=== PATIENT | male | born 1945 | race African-American/Black ===

== ENCOUNTER 2020-01-10 10:17 | Inpatient (IN) ==
[2020-01-10] MEDS ORDERED: SODIUM CHLORIDE 0.9% 500 ML IV STA (10:47)
[2020-01-10] MEDS ORDERED: SODIUM CHLORIDE 0.9% 1,000 ML IV PRN ×2 (10:48→14:51)
[2020-01-10 11:41] LABS: Eosinophils % 0.3 % (0.00-10.9); Immature Granulocytes % 1.4 %; Immature Granulocytes Absolute 0.08 #; Lymphocytes # 0.7 10*3/uL (1.4-4.0); Mean Corpuscular HGB Conc 28.8 GM/DL (32-36); Mean Corpuscular Volume 106.1 FL (87-102); Monocytes % 10.8 % (1.7-12.7); NRBC # 0.02 10*3/uL; Neutrophils % 75.5 % (38.7-73.9); Red Blood Count 0.98 MC/CUMM (3.8-5.5); Red Cell Distribution Width 18.4 % (9.3-17.3); White Blood Count 5.9 T/CUMM (4-12)
[2020-01-10 11:43] LABS: PT Patient Result 10.3 SECS (9.8-11.9)
[2020-01-10 11:45] LABS: Hematocrit 10.4 VOL% (42.0-52.0)
[2020-01-10 11:46] LABS: Platelet Count 7 T/CUMM (130-400)
[2020-01-10 11:59] LABS: Alanine Aminotransferase 14 U/L (16-61); Albumin 1.9 G/DL (3.4-5.0); Alkaline Phosphatase 66 U/L (45-117); Aspartate Amino Transferase 18 U/L (0-37); Bilirubin,Total < 0.39 MG/DL (0.2-1.0); Blood Urea Nitrogen 85 MG/DL (7-18); Calcium 7.1 MG/DL (8.5-10.1); Estimated Glom Filtration Rate 8 ML/MIN; Glucose 128 MG/DL (74-106); Osmolality,Calculated 302.7 MOS/KG (273-304); Total Protein 5.5 G/DL (6.4-8.3)
[2020-01-10 12:21] LABS: Band Neutrophils 6 % (0-10); Eosinophils 1 % (0-10); Lymphocytes 16 % (20-55); Myelocytes 1 %; Segmented Neutrophils 71 % (50-85); Total Cells Counted 100
[2020-01-10 12:22] LABS: Anisocytosis 1+; Hypochromasia Slight; Macrocytosis 1+; Platelet Estimate Decreased
[2020-01-10 13:05] LABS: Folate 8.2 NG/ML (5.4-24.0)
[2020-01-10] MEDS ORDERED: ONDANSETRON 4 MG/2 ML VIAL IV PRN (14:38)
[2020-01-10] MEDS ORDERED: DEXTROSE 10% 250 ML BAG IV PRN (14:38)
[2020-01-10] MEDS ORDERED: GLUCAGON 1 MG VIAL IM PRN (14:38)
[2020-01-10] MEDS ORDERED: PNEUMOCOCCAL VACCINE (13 VALENT) 0.5 ML SYRINGE IM ONE (17:27)
[2020-01-10] MEDS: SODIUM CHLORIDE 0.9% 1,000 ML IV SCH (17:41)
[2020-01-11 05:59] LABS: Basophils % 0.2 % (0.0-0.8); Eosinophils # 0.1 10*3/uL (0.0-0.87); Eosinophils % 1.2 % (0.00-10.9); Immature Granulocytes Absolute 0.05 #; Lymphocytes # 0.6 10*3/uL (1.4-4.0); Lymphocytes % 12.8 % (21.2-54.2); Mean Corpuscular HGB Conc 30.7 GM/DL (32-36); Monocytes % 11.2 % (1.7-12.7); Neutrophils % 73.6 % (38.7-73.9); Red Blood Count 1.47 MC/CUMM (3.8-5.5); Red Cell Distribution Width 16.8 % (9.3-17.3)
[2020-01-11 06:25] LABS: Hemoglobin 4.6 GM/DL (14.0-18.0); Platelet Count 5 T/CUMM (130-400)
[2020-01-11 06:26] LABS: Alanine Aminotransferase 12 U/L (16-61); Albumin 1.8 G/DL (3.4-5.0); Alkaline Phosphatase 56 U/L (45-117); Aspartate Amino Transferase 16 U/L (0-37); Bilirubin,Total < 0.39 MG/DL (0.2-1.0); Blood Urea Nitrogen 79 MG/DL (7-18); Calcium 7.4 MG/DL (8.5-10.1); Estimated Glom Filtration Rate 9 ML/MIN; Glucose 70 MG/DL (74-106); Osmolality,Calculated 298.5 MOS/KG (273-304); Total Protein 4.9 G/DL (6.4-8.3)
[2020-01-11 07:03] LABS: Platelet Estimate Decreased
[2020-01-11 07:05] LABS: Anisocytosis 2+; Poikilocytosis Slight
[2020-01-11 07:06] LABS: Burr Cells Few
[2020-01-11] MEDS: SODIUM CHLORIDE 0.9% 1,000 ML IV SCH ×5 (07:06→21:01)
[2020-01-11 07:19] LABS: Total Protein 4.9 G/DL (6.4-8.3)
[2020-01-11] MEDS ORDERED: HEPARIN 5,000 UNIT/1 ML VIAL ONE (08:36)
[2020-01-11 09:04] LABS: Albumin (SPE) Rel % 51.7 %; Alpha 1 (SPE) Rel % 3.8 %; Beta (SPE) Rel % 14.1 %; Gamma (SPE) Rel % 17.4 %
[2020-01-11 09:13] LABS: Albumin (SPE) 2.5 G/DL (3.2-5.3); Alpha 1 (SPE) 0.2 G/DL (0.1-0.4); Alpha 2 (SPE) 0.6 G/DL (0.4-1.0); Beta (SPE) 0.7 G/DL (0.5-1.1); Gamma (SPE) 0.9 G/DL (0.7-1.7); Total Protein (Chem) 4.9 G/DL (6.4-8.3)
[2020-01-11 09:21] LABS: Immunoglobulin A (Chem) 220 MG/DL (70-400); Immunoglobulin G (Chem) 898 MG/DL (700-1600); Immunoglobulin M (Chem) 23 MG/DL (40-230)
[2020-01-11] MEDS ORDERED: SODIUM CHLORIDE 0.9% 1,000 ML IV PRN ×2 (10:25→20:18)
[2020-01-11 10:52] LABS: Immuno Free Light Chain Kappa 47.56 MG/DL (0.33-1.94); Immuno Free Light Chain Lambda 17.12 MG/DL (0.57-2.63); Immuno Free Light Chain Ratio 2.78 MG/DL (0.26-1.65)
[2020-01-11 19:10] LABS: Basophils % 0.3 % (0.0-0.8); Eosinophils # 0.1 10*3/uL (0.0-0.87); Eosinophils % 1.5 % (0.00-10.9); Hematocrit 20.4 VOL% (42.0-52.0); Immature Granulocytes % 1.2 %; Immature Granulocytes Absolute 0.07 #; Lymphocytes # 0.5 10*3/uL (1.4-4.0); Lymphocytes % 9.1 % (21.2-54.2); Mean Corpuscular HGB Conc 31.4 GM/DL (32-36); Mean Corpuscular Volume 96.2 FL (87-102); Neutrophils % 75.9 % (38.7-73.9); Red Blood Count 2.12 MC/CUMM (3.8-5.5); Red Cell Distribution Width 18.5 % (9.3-17.3); White Blood Count 5.9 T/CUMM (4-12)
[2020-01-11 19:16] LABS: Hemoglobin 6.4 GM/DL (14.0-18.0); Platelet Count 19 T/CUMM (130-400)
[2020-01-12 08:10] LABS: Basophils % 0.2 % (0.0-0.8); Eosinophils # 0.1 10*3/uL (0.0-0.87); Eosinophils % 1.8 % (0.00-10.9); Hematocrit 27.7 VOL% (42.0-52.0); Hemoglobin 8.8 GM/DL (14.0-18.0); Immature Granulocytes % 1.2 %; Immature Granulocytes Absolute 0.06 #; Lymphocytes # 0.7 10*3/uL (1.4-4.0); Lymphocytes % 12.6 % (21.2-54.2); Mean Corpuscular HGB Conc 31.8 GM/DL (32-36); Mean Corpuscular Volume 94.5 FL (87-102); Monocytes % 12.5 % (1.7-12.7); Neutrophils % 71.7 % (38.7-73.9); Red Blood Count 2.93 MC/CUMM (3.8-5.5); Red Cell Distribution Width 17.3 % (9.3-17.3); White Blood Count 5.1 T/CUMM (4-12)
[2020-01-12 08:12] LABS: Platelet Count 8 T/CUMM (130-400)
[2020-01-12 08:18] LABS: PT Patient Result 10.6 SECS (9.8-11.9); Partial Thromboplastin Time 27.7 SECS (23.9-33.8)
[2020-01-12 08:31] LABS: Albumin 1.8 G/DL (3.4-5.0); Bilirubin,Total 0.4 MG/DL (0.2-1.0); Calcium 7.1 MG/DL (8.5-10.1); Osmolality,Calculated 299.3 MOS/KG (273-304); Total Protein 5.1 G/DL (6.4-8.3)
[2020-01-12] MEDS ORDERED: SODIUM CHLORIDE 0.9% 1,000 ML IV PRN (08:53)
[2020-01-12 09:17] LABS: Hypochromasia 1+; Microcytosis Slight; Ovalocytes Slight; Platelet Estimate Decreased
[2020-01-12 09:26] LABS: Total Protein 24 Hr Ur Result 6898 MG/24HR (0-149.1); Total Volume,Urine 1825 ML (400-2000)
[2020-01-12] MEDS: methylPREDNISolone SOD SUC INJ 1,000 MG in SODIUM CHLORIDE 0.9% 100 ML IV SCH (11:10)
[2020-01-12] MEDS: SODIUM CHLORIDE 0.9% 1,000 ML IV SCH ×3 (11:10→22:00)
[2020-01-13 05:57] LABS: Hematocrit 26.8 VOL% (42.0-52.0); Hemoglobin 8.6 GM/DL (14.0-18.0); Immature Granulocytes Absolute 0.05 #; Lymphocytes # 0.3 10*3/uL (1.4-4.0); Lymphocytes % 6.3 % (21.2-54.2); Mean Corpuscular HGB Conc 32.1 GM/DL (32-36); Mean Corpuscular Volume 94.7 FL (87-102); Mean Platelet Volume 13.4 FL (9.6-12.0); Monocytes % 5.1 % (1.7-12.7); Neutrophils % 87.6 % (38.7-73.9); Red Blood Count 2.83 MC/CUMM (3.8-5.5); Red Cell Distribution Width 17.7 % (9.3-17.3); White Blood Count 5.1 T/CUMM (4-12)
[2020-01-13 06:01] LABS: Platelet Count 21 T/CUMM (130-400)
[2020-01-13 06:22] LABS: Burr Cells 4+
[2020-01-13 06:23] LABS: Hypochromasia Slight; Ovalocytes 1+; Platelet Estimate Decreased
[2020-01-13 06:24] LABS: Microcytosis 1+
[2020-01-13] MEDS: SODIUM CHLORIDE 0.9% 1,000 ML IV SCH ×2 (06:26→16:04)
[2020-01-13 06:34] LABS: Albumin 1.8 G/DL (3.4-5.0); Bilirubin,Total 1.2 MG/DL (0.2-1.0); Calcium 7.2 MG/DL (8.5-10.1); Osmolality,Calculated 299.5 MOS/KG (273-304); Total Protein 5.3 G/DL (6.4-8.3)
[2020-01-13] MEDS: methylPREDNISolone SOD SUC INJ 1,000 MG in SODIUM CHLORIDE 0.9% 100 ML IV SCH (10:29)
[2020-01-13] MEDS ORDERED: VALSARTAN 80 MG TABLET PO SCH (10:30)
[2020-01-13] MEDS: SODIUM BICARBONATE 650 MG TABLET PO SCH ×2 (12:44→21:01)
[2020-01-13 16:32] LABS: Apearance,Urine CLOUDY (Clear); Bacteria,Urine Occasional /HPF (Few); Bilirubin,Urine Negative (Negative); Blood, Urine Moderate mg/dL (Negative); Glucose,Urine (UA) >=500 mg/dL (Negative); Ketones,Urine Negative (Negative); Mucus,Urine Occasional /LPF (Occasional); Nitrite,Urine Negative (Negative); Protein,Urine >=500 MG/DL; RBC,Urine 1 /HPF (0-4); Squamous Epithelial Cell,Urine Occasional /HPF (0-10); Urine Color Yellow (Yellow); Urine Specific Gravity 1.013 (1.001-1.035); Urine Urobilinogen < 2.0 EU/DL (0.2-1.0); WBC,Urine 3 /HPF (0-6)
[2020-01-14] MEDS: SODIUM CHLORIDE 0.9% 1,000 ML IV SCH ×2 (00:30→07:35)
[2020-01-14 06:13] LABS: Hematocrit 25.1 VOL% (42.0-52.0); Hemoglobin 8.1 GM/DL (14.0-18.0); Immature Granulocytes % 0.8 %; Immature Granulocytes Absolute 0.05 #; Lymphocytes # 0.3 10*3/uL (1.4-4.0); Lymphocytes % 5.2 % (21.2-54.2); Mean Corpuscular HGB Conc 32.3 GM/DL (32-36); Mean Corpuscular Volume 95.1 FL (87-102); Monocytes % 7.7 % (1.7-12.7); Neutrophils % 86.3 % (38.7-73.9); Red Blood Count 2.64 MC/CUMM (3.8-5.5); Red Cell Distribution Width 17.7 % (9.3-17.3); White Blood Count 6.1 T/CUMM (4-12)
[2020-01-14 06:22] LABS: Platelet Count 23 T/CUMM (130-400)
[2020-01-14 06:33] LABS: Acanthocytes Few; Anisocytosis 1+; Burr Cells 1+; Hypochromasia Slight; Macrocytosis 1+; Platelet Estimate Decreased
[2020-01-14 06:38] LABS: Albumin 1.7 G/DL (3.4-5.0); Bilirubin,Total 0.5 MG/DL (0.2-1.0); Osmolality,Calculated 304.3 MOS/KG (273-304); Total Protein 4.8 G/DL (6.4-8.3)
[2020-01-14] MEDS: hydrALAZINE 25 MG TABLET PO SCH ×2 (08:29→14:38)
[2020-01-14] MEDS: SODIUM BICARBONATE 650 MG TABLET PO SCH ×3 (08:30→14:38)
[2020-01-14] MEDS: methylPREDNISolone SOD SUC INJ 1,000 MG in SODIUM CHLORIDE 0.9% 100 ML IV SCH (10:04)
[2020-01-14 13:23] LABS: Albumin (UPE) Rel % 56.3 %; Alpha 1 (UPE) 489.7 MG/24H; Alpha 1 (UPE) Rel % 7.1 %; Alpha 2 (UPE) 669.1 MG/24H; Alpha 2 (UPE) Rel % 9.7 %; Beta (UPE) 951.9 MG/24H; Beta (UPE) Rel % 13.8 %; Gamma (UPE) 903.6 MG/24H; Gamma (UPE) Rel % 13.1 %
[2020-01-14 13:23] LABS: Albumin (UPER) 362.5 MG/DL; Albumin (UPER) Rel% 61.8 %; Alpha 1 (UPER) 19.4 MG/DL; Alpha 1 (UPER) Rel% 3.3 %; Alpha 2 (UPER) 42.2 MG/DL; Alpha 2 (UPER) Rel % 7.2 %; Beta (UPER) 49.3 MG/DL; Beta (UPER) Rel % 8.4 %; Gamma (UPER) 113.2 MG/DL; Gamma (UPER) Rel % 19.3 %
[2020-01-14 13:27] LABS: Random Urine Protein (Bench) 587 MG/DL (<11.9)
[2020-01-14 13:37] LABS: Hepatitis B Core IgM Quant 0.18 Index; Hepatitis B Surface Ag Quant 0.29 Index; Hepatitis B Surface Ag Result Negative (Negative); Hepatitis C Virus Ab Result Negative (Negative)
[2020-01-14 15:56] VITALS: BP 177/88
== END 2020-01-14 17:30 | disposition home or self-care (01) | DRG 812 ==
LOC: N.ED 10:17 → N.EDINP 14:38 → SUATTDRO 14:38 → N.TELES 16:47 → N.4E 01-13 14:03
PROVIDERS: ADMIT Internal Medicine Geriatric Medicine; ATTEND Hospitalist

== ENCOUNTER 2020-02-06 05:38 | Inpatient (IN) ==
[2020-02-06] MEDS ORDERED: SODIUM CHLORIDE 0.9% 500 ML IV STA (06:26)
[2020-02-06 06:39] LABS: Alanine Aminotransferase 18 U/L (16-61); Albumin 1.7 G/DL (3.4-5.0); Alkaline Phosphatase 53 U/L (45-117); Aspartate Amino Transferase 18 U/L (0-37); Bilirubin,Total < 0.39 MG/DL (0.2-1.0); Blood Urea Nitrogen 113 MG/DL (7-18); Calcium 7.1 MG/DL (8.5-10.1); Estimated Glom Filtration Rate 6 ML/MIN; Glucose 150 MG/DL (74-106); Osmolality,Calculated 317.4 MOS/KG (273-304); Total Protein 4.6 G/DL (6.4-8.3)
[2020-02-06 06:52] LABS: Eosinophils % 0.1 % (0.00-10.9); Immature Granulocytes % 3.6 %; Immature Granulocytes Absolute 0.39 #; Lymphocytes # 1.4 10*3/uL (1.4-4.0); Lymphocytes % 12.5 % (21.2-54.2); Mean Corpuscular Volume 102.3 FL (87-102); Monocytes % 10.6 % (1.7-12.7); NRBC # 0.21 10*3/uL; Neutrophils % 73.2 % (38.7-73.9); Red Blood Count 0.88 MC/CUMM (3.8-5.5); Red Cell Distribution Width 19.2 % (9.3-17.3); White Blood Count 10.8 T/CUMM (4-12)
[2020-02-06 06:53] LABS: Hemoglobin 2.7 GM/DL (14.0-18.0); Platelet Count 1 T/CUMM (130-400)
[2020-02-06 06:55] LABS: PT Patient Result 11.1 SECS (9.8-11.9); Partial Thromboplastin Time 27.4 SECS (23.9-33.8)
[2020-02-06] MEDS ORDERED: SODIUM CHLORIDE 0.9% 1,000 ML IV PRN ×2 (06:55→08:34)
[2020-02-06 07:03] LABS: Hypochromasia 1+; Ovalocytes Slight; Platelet Estimate Decreased
[2020-02-06 07:04] LABS: Troponin I 0.165 NG/ML (0.00-0.045)
[2020-02-06 07:04] LABS: Microcytosis Slight
[2020-02-06 07:21] LABS: Ferritin 219.9 ng/ml (26-388)
[2020-02-06] MEDS ORDERED: allopurinoL 100 MG TABLET PO SCH (09:00)
[2020-02-06] MEDS ORDERED: ONDANSETRON 4 MG/2 ML VIAL ONE (09:54)
[2020-02-06] MEDS ORDERED: ONDANSETRON 4 MG/2 ML VIAL IV PRN (09:57)
[2020-02-06] MEDS ORDERED: ACETAMINOPHEN 325 MG TABLET PO PRN (14:44)
[2020-02-06] MEDS: PANTOPRAZOLE 40 MG TABLET PO SCH (16:23)
[2020-02-06] MEDS ORDERED: IMMUNE GLOBULIN 10% 40 GM in PREMIX 1 EACH IV ONE (18:00)
[2020-02-06] MEDS: methylPREDNISolone SOD SUC INJ 1,000 MG in SODIUM CHLORIDE 0.9% 100 ML IV SCH (21:27)
[2020-02-06 22:31] LABS: Immature Granulocytes % 1.4 %; Immature Granulocytes Absolute 0.14 #; Lymphocytes # 1.2 10*3/uL (1.4-4.0); Mean Corpuscular HGB Conc 31.2 GM/DL (32-36); Mean Corpuscular Volume 100.7 FL (87-102); Mean Platelet Volume 11.7 FL (9.6-12.0); NRBC # 0.58 10*3/uL; Neutrophils % 73.6 % (38.7-73.9); Red Blood Count 1.53 MC/CUMM (3.8-5.5); Red Cell Distribution Width 14.9 % (9.3-17.3); White Blood Count 10.1 T/CUMM (4-12)
[2020-02-06 22:42] LABS: Hematocrit 15.4 VOL% (42.0-52.0); Hemoglobin 4.8 GM/DL (14.0-18.0); Platelet Count 7 T/CUMM (130-400)
[2020-02-07 02:18] LABS: Acanthocytes Few; Anisocytosis 1+; Eosinophils 1 % (0-10); Lymphocytes 11 % (20-55); Nucleated Red Blood Cells 5 (0-5); Platelet Estimate Decreased; Segmented Neutrophils 71 % (50-85); Total Cells Counted 100
[2020-02-07 07:00] LABS: Basophils % 0.1 % (0.0-0.8); Hematocrit 20.6 VOL% (42.0-52.0); Immature Granulocytes % 1.4 %; Immature Granulocytes Absolute 0.12 #; Lymphocytes # 0.8 10*3/uL (1.4-4.0); Lymphocytes % 9.4 % (21.2-54.2); Mean Corpuscular HGB Conc 31.6 GM/DL (32-36); Mean Corpuscular Volume 91.2 FL (87-102); Monocytes % 6.2 % (1.7-12.7); NRBC # 0.41 10*3/uL; Neutrophils % 82.9 % (38.7-73.9); Red Cell Distribution Width 18.4 % (9.3-17.3); White Blood Count 8.6 T/CUMM (4-12)
[2020-02-07 07:06] LABS: Platelet Count 11 T/CUMM (130-400)
[2020-02-07 07:07] LABS: Hemoglobin 6.5 GM/DL (14.0-18.0); Red Blood Count 2.26 MC/CUMM (3.8-5.5)
[2020-02-07 07:16] LABS: Calcium 6.5 MG/DL (8.5-10.1)
[2020-02-07 07:17] LABS: Burr Cells Slight; Hypochromasia 2+; Microcytosis 1+; Ovalocytes Slight; Platelet Estimate Decreased; Troponin I 0.534 NG/ML (0.00-0.045)
[2020-02-07 07:19] LABS: Albumin 1.7 G/DL (3.4-5.0); Calcium 6.5 MG/DL (8.5-10.1)
[2020-02-07] MEDS: PANTOPRAZOLE 40 MG TABLET PO SCH (08:13)
[2020-02-07] MEDS ORDERED: PNEUMOCOCCAL VACCINE (13 VALENT) 0.5 ML SYRINGE IM ONE (09:00)
[2020-02-07] MEDS ORDERED: SODIUM BICARBONATE 50 MEQ/50 ML VIAL IV ONE (12:00)
[2020-02-07] MEDS ORDERED: FUROSEMIDE 40 MG/4 ML VIAL IV ONE (13:54)
[2020-02-07 16:18] LABS: Hepatitis B Core IgM Quant 0.21 Index; Hepatitis B Surface Ag Quant 0.33 Index; Hepatitis B Surface Ag Result Negative (Negative); Hepatitis C Virus Ab Quant 0.15 Index; Hepatitis C Virus Ab Result Negative (Negative)
[2020-02-07] MEDS: IMMUNE GLOBULIN 10% 40 GM in PREMIX 1 EACH IV SCH (18:03)
[2020-02-07] MEDS: methylPREDNISolone SOD SUC INJ 1,000 MG in SODIUM CHLORIDE 0.9% 100 ML IV SCH (20:08)
[2020-02-07 20:19] LABS: Hematocrit 25.5 VOL% (42.0-52.0)
[2020-02-07 20:20] LABS: Hemoglobin 8.5 GM/DL (14.0-18.0)
[2020-02-08 05:09] LABS: Hematocrit 22.3 VOL% (42.0-52.0); Hemoglobin 7.3 GM/DL (14.0-18.0); Immature Granulocytes % 0.9 %; Immature Granulocytes Absolute 0.06 #; Lymphocytes # 0.4 10*3/uL (1.4-4.0); Lymphocytes % 6.8 % (21.2-54.2); Mean Corpuscular HGB Conc 32.7 GM/DL (32-36); Mean Corpuscular Volume 86.4 FL (87-102); Monocytes % 7.7 % (1.7-12.7); NRBC # 0.23 10*3/uL; Neutrophils % 84.6 % (38.7-73.9); Red Blood Count 2.58 MC/CUMM (3.8-5.5); Red Cell Distribution Width 19.8 % (9.3-17.3); White Blood Count 6.4 T/CUMM (4-12)
[2020-02-08 05:20] LABS: Calcium 6.5 MG/DL (8.5-10.1); Osmolality,Calculated 301.2 MOS/KG (273-304)
[2020-02-08 05:24] LABS: Platelet Count 1 T/CUMM (130-400)
[2020-02-08] MEDS ORDERED: SODIUM CHLORIDE 0.9% 1,000 ML IV PRN (05:35)
[2020-02-08 05:43] LABS: Anisocytosis 1+; Hypochromasia 1+; Microcytosis 1+; Ovalocytes Slight; Polychromasia Slight; Spherocytes Slight
[2020-02-08 05:44] LABS: Platelet Estimate Decreased
[2020-02-08 06:44] LABS: Hepatitis B Core IgM Quant 0.21 Index; Hepatitis B Surface Ag Quant 0.21 Index; Hepatitis B Surface Ag Result Negative (Negative); Hepatitis C Virus Ab Quant 0.13 Index; Hepatitis C Virus Ab Result Negative (Negative)
[2020-02-08] MEDS: IMMUNE GLOBULIN 10% 40 GM in PREMIX 1 EACH IV SCH (09:22)
[2020-02-08] MEDS: PANTOPRAZOLE 40 MG TABLET PO SCH (09:23)
[2020-02-08] MEDS ORDERED: IMMUNE GLOBULIN 10% 40 GM in PREMIX 1 EACH IV ONE (10:43)
[2020-02-08] MEDS ORDERED: diphenhydrAMINE 50 MG/1 ML VIAL IV ONE (11:23)
[2020-02-08] MEDS ORDERED: ACETAMINOPHEN 500 MG TABLET PO ONE (11:23)
[2020-02-08] MEDS ORDERED: FAMOTIDINE INJ 40 MG in SODIUM CHLORIDE 0.9% 100 ML IV ONE (11:24)
[2020-02-08] MEDS ORDERED: AMINOCAPROIC ACID INJ 5,000 MG in SODIUM CHLORIDE 0.9% 250 ML IV ONE (12:00)
[2020-02-08] MEDS: CYANOCOBALAMIN 500 MCG TABLET PO SCH (13:16)
[2020-02-08] MEDS ORDERED: riTUXimab 750 MG in SODIUM CHLORIDE 0.9% 675 ML IV ONE (13:30)
[2020-02-08] MEDS ORDERED: riTUXimab 500 MG, riTUXimab 250 MG in SODIUM CHLORIDE 0.9% 675 ML IV ONE (13:30)
[2020-02-09] MEDS: methylPREDNISolone SOD SUC INJ 1,000 MG in SODIUM CHLORIDE 0.9% 100 ML IV SCH (00:18)
[2020-02-09 05:45] LABS: Hematocrit 19.4 VOL% (42.0-52.0); Immature Granulocytes % 1.1 %; Immature Granulocytes Absolute 0.06 #; Lymphocytes # 0.3 10*3/uL (1.4-4.0); Lymphocytes % 5.9 % (21.2-54.2); Mean Corpuscular Volume 88.2 FL (87-102); Monocytes % 13.3 % (1.7-12.7); NRBC # 0.16 10*3/uL; Neutrophils % 79.7 % (38.7-73.9); Red Cell Distribution Width 21.2 % (9.3-17.3); White Blood Count 5.6 T/CUMM (4-12)
[2020-02-09 06:02] LABS: Hemoglobin 6.4 GM/DL (14.0-18.0)
[2020-02-09 06:03] LABS: Platelet Count 5 T/CUMM (130-400)
[2020-02-09 06:15] LABS: Calcium 6.2 MG/DL (8.5-10.1)
[2020-02-09 06:24] LABS: Lymphocytes 5 % (20-55); Nucleated Red Blood Cells 1 (0-5); Platelet Estimate Decreased; Segmented Neutrophils 89 % (50-85); Total Cells Counted 100
[2020-02-09 06:25] LABS: Hypochromasia 2+; Microcytosis 1+
[2020-02-09] MEDS: PANTOPRAZOLE 40 MG TABLET PO SCH (09:13)
[2020-02-09] MEDS: CYANOCOBALAMIN 500 MCG TABLET PO SCH (09:13)
[2020-02-09] MEDS ORDERED: SODIUM CHLORIDE 0.9% 1,000 ML IV PRN (09:25)
[2020-02-09] MEDS ORDERED: IMMUNE GLOBULIN 10% 40 GM in PREMIX 1 EACH IV ONE (09:30)
[2020-02-09] MEDS: IMMUNE GLOBULIN 10% 40 GM in PREMIX 1 EACH IV SCH (09:30)
[2020-02-09] MEDS ORDERED: AMINOCAPROIC ACID 500 MG TABLET PO SCH (10:00)
[2020-02-09] MEDS ORDERED: AMINOCAPROIC ACID 5,000 MG/20 ML VIAL IV SCH (14:00)
[2020-02-09 15:44] LABS: Hematocrit 27.7 VOL% (42.0-52.0); Hemoglobin 8.9 GM/DL (14.0-18.0); Immature Granulocytes % 1.5 %; Immature Granulocytes Absolute 0.09 #; Lymphocytes # 0.3 10*3/uL (1.4-4.0); Lymphocytes % 4.2 % (21.2-54.2); Mean Corpuscular HGB Conc 32.1 GM/DL (32-36); Mean Corpuscular Volume 88.8 FL (87-102); Monocytes % 6.9 % (1.7-12.7); NRBC # 0.14 10*3/uL; Neutrophils % 87.4 % (38.7-73.9); Red Blood Count 3.12 MC/CUMM (3.8-5.5); Red Cell Distribution Width 20.3 % (9.3-17.3); White Blood Count 5.9 T/CUMM (4-12)
[2020-02-09 15:47] LABS: Platelet Count 5 T/CUMM (130-400)
[2020-02-09 17:01] LABS: Lymphocytes 8 % (20-55); Nucleated Red Blood Cells 3 (0-5); Platelet Estimate Decreased; Segmented Neutrophils 88 % (50-85); Total Cells Counted 100
[2020-02-09] MEDS: SODIUM CHLORIDE 0.9% IV SCH (18:26)
[2020-02-09] MEDS: AMINOCAPROIC ACID IV SCH (18:26)
[2020-02-10] MEDS: AMINOCAPROIC ACID IV SCH ×4 (04:06→20:16)
[2020-02-10] MEDS: SODIUM CHLORIDE 0.9% IV SCH ×4 (04:06→20:16)
[2020-02-10 04:58] LABS: Hematocrit 23.7 VOL% (42.0-52.0); Hemoglobin 7.6 GM/DL (14.0-18.0); Immature Granulocytes % 1.7 %; Immature Granulocytes Absolute 0.11 #; Lymphocytes # 0.4 10*3/uL (1.4-4.0); Lymphocytes % 6.4 % (21.2-54.2); Mean Corpuscular HGB Conc 32.1 GM/DL (32-36); Mean Corpuscular Volume 88.8 FL (87-102); Mean Platelet Volume 11.8 FL (9.6-12.0); Monocytes % 13.5 % (1.7-12.7); NRBC # 0.11 10*3/uL; Neutrophils % 78.4 % (38.7-73.9); Red Blood Count 2.67 MC/CUMM (3.8-5.5); Red Cell Distribution Width 20.6 % (9.3-17.3); White Blood Count 6.4 T/CUMM (4-12)
[2020-02-10 05:12] LABS: Platelet Count 34 T/CUMM (130-400)
[2020-02-10 05:24] LABS: Calcium 6.5 MG/DL (8.5-10.1)
[2020-02-10 05:25] LABS: Hypochromasia 1+; Platelet Estimate Decreased; Polychromasia Few
[2020-02-10] MEDS: CYANOCOBALAMIN 500 MCG TABLET PO SCH (09:17)
[2020-02-10] MEDS: PANTOPRAZOLE 40 MG TABLET PO SCH (09:17)
[2020-02-11] MEDS: AMINOCAPROIC ACID IV SCH ×3 (05:29→20:25)
[2020-02-11] MEDS: SODIUM CHLORIDE 0.9% IV SCH ×3 (05:29→20:25)
[2020-02-11 07:00] LABS: Eosinophils % 0.2 % (0.00-10.9); Hematocrit 28.5 VOL% (42.0-52.0); Hemoglobin 8.9 GM/DL (14.0-18.0); Immature Granulocytes % 1.7 %; Immature Granulocytes Absolute 0.14 #; Lymphocytes # 0.9 10*3/uL (1.4-4.0); Lymphocytes % 10.6 % (21.2-54.2); Mean Corpuscular HGB Conc 31.2 GM/DL (32-36); Mean Corpuscular Volume 90.5 FL (87-102); Monocytes % 11.7 % (1.7-12.7); NRBC # 0.05 10*3/uL; Neutrophils % 75.8 % (38.7-73.9); Red Blood Count 3.15 MC/CUMM (3.8-5.5)
[2020-02-11 07:03] LABS: Platelet Count 40 T/CUMM (130-400)
[2020-02-11 07:45] LABS: Calcium 6.7 MG/DL (8.5-10.1); Osmolality,Calculated 297.1 MOS/KG (273-304)
[2020-02-11 08:24] LABS: Band Neutrophils 3 % (0-10); Lymphocytes 12 % (20-55); Segmented Neutrophils 75 % (50-85); Total Cells Counted 100
[2020-02-11 08:25] LABS: Anisocytosis 1+; Hypochromasia 1+; Macrocytosis 1+; Platelet Estimate Decreased; Polychromasia 2+
[2020-02-11] MEDS: PANTOPRAZOLE 40 MG TABLET PO SCH (09:33)
[2020-02-11] MEDS: CYANOCOBALAMIN 500 MCG TABLET PO SCH (09:33)
[2020-02-12] MEDS: AMINOCAPROIC ACID IV SCH ×3 (03:38→20:17)
[2020-02-12] MEDS: SODIUM CHLORIDE 0.9% IV SCH ×3 (03:38→20:17)
[2020-02-12 05:51] LABS: Calcium 6.8 MG/DL (8.5-10.1); Osmolality,Calculated 287.8 MOS/KG (273-304)
[2020-02-12 08:22] LABS: Eosinophils # 0.1 10*3/uL (0.0-0.87); Eosinophils % 0.7 % (0.00-10.9); Hematocrit 25.9 VOL% (42.0-52.0); Hemoglobin 8.2 GM/DL (14.0-18.0); Immature Granulocytes % 1.3 %; Immature Granulocytes Absolute 0.09 #; Lymphocytes # 0.5 10*3/uL (1.4-4.0); Lymphocytes % 6.6 % (21.2-54.2); Mean Corpuscular HGB Conc 31.7 GM/DL (32-36); Mean Corpuscular Volume 89.6 FL (87-102); Mean Platelet Volume 12.1 FL (9.6-12.0); Monocytes % 12.3 % (1.7-12.7); NRBC # 0.02 10*3/uL; Neutrophils % 79.1 % (38.7-73.9); Red Blood Count 2.89 MC/CUMM (3.8-5.5); Red Cell Distribution Width 20.9 % (9.3-17.3); White Blood Count 6.8 T/CUMM (4-12)
[2020-02-12 08:40] LABS: Platelet Count 31 T/CUMM (130-400)
[2020-02-12 08:50] LABS: Hypochromasia 1+; Microcytosis 1+
[2020-02-12 08:51] LABS: Anisocytosis 1+; Ovalocytes Slight; Platelet Estimate Decreased; Polychromasia Slight
[2020-02-12] MEDS: PANTOPRAZOLE 40 MG TABLET PO SCH (09:08)
[2020-02-12] MEDS: CYANOCOBALAMIN 500 MCG TABLET PO SCH (09:09)
[2020-02-12 15:31] LABS: Myeloperoxidase Antibody < 0.2 U
[2020-02-13 03:46] LABS: Calcium 6.9 MG/DL (8.5-10.1); Osmolality,Calculated 286.1 MOS/KG (273-304)
[2020-02-13] MEDS: SODIUM CHLORIDE 0.9% IV SCH (03:59)
[2020-02-13] MEDS: AMINOCAPROIC ACID IV SCH (03:59)
[2020-02-13 08:41] LABS: Eosinophils # 0.1 10*3/uL (0.0-0.87); Eosinophils % 1.5 % (0.00-10.9); Hematocrit 28.6 VOL% (42.0-52.0); Immature Granulocytes % 0.9 %; Immature Granulocytes Absolute 0.07 #; Lymphocytes # 0.6 10*3/uL (1.4-4.0); Lymphocytes % 8.7 % (21.2-54.2); Mean Corpuscular HGB Conc 31.5 GM/DL (32-36); Mean Corpuscular Volume 89.7 FL (87-102); Monocytes % 13.4 % (1.7-12.7); NRBC # 0.02 10*3/uL; Neutrophils % 75.5 % (38.7-73.9); Red Blood Count 3.19 MC/CUMM (3.8-5.5); Red Cell Distribution Width 20.9 % (9.3-17.3); White Blood Count 7.4 T/CUMM (4-12)
[2020-02-13 08:43] LABS: Platelet Count 39 T/CUMM (130-400)
[2020-02-13] MEDS: PANTOPRAZOLE 40 MG TABLET PO SCH (08:47)
[2020-02-13] MEDS: CYANOCOBALAMIN 500 MCG TABLET PO SCH (08:47)
[2020-02-13 08:58] LABS: Hypochromasia 1+; Microcytosis 1+
[2020-02-13 08:59] LABS: Ovalocytes Slight; Platelet Estimate Decreased
[2020-02-13] MEDS ORDERED: SODIUM CHLORIDE 0.9% 1,000 ML IV PRN ×2 (15:04→18:03)
[2020-02-14 05:42] LABS: Basophils % 0.2 % (0.0-0.8); Eosinophils # 0.1 10*3/uL (0.0-0.87); Eosinophils % 1.4 % (0.00-10.9); Hematocrit 25.8 VOL% (42.0-52.0); Hemoglobin 8.3 GM/DL (14.0-18.0); Immature Granulocytes % 1.1 %; Immature Granulocytes Absolute 0.07 #; Lymphocytes # 0.7 10*3/uL (1.4-4.0); Lymphocytes % 10.6 % (21.2-54.2); Mean Corpuscular HGB Conc 32.2 GM/DL (32-36); Mean Corpuscular Volume 89.9 FL (87-102); Monocytes % 15.8 % (1.7-12.7); Neutrophils % 70.9 % (38.7-73.9); Red Blood Count 2.87 MC/CUMM (3.8-5.5); Red Cell Distribution Width 20.5 % (9.3-17.3); White Blood Count 6.6 T/CUMM (4-12)
[2020-02-14 05:45] LABS: Platelet Count 32 T/CUMM (130-400)
[2020-02-14 06:00] LABS: Calcium 7.2 MG/DL (8.5-10.1)
[2020-02-14 06:30] LABS: Band Neutrophils 1 % (0-10); Eosinophils 2 % (0-10); Hypochromasia 1+; Lymphocytes 7 % (20-55); Metamyelocytes 1 %; Microcytosis 1+; Nucleated Red Blood Cells 2 (0-5); Segmented Neutrophils 79 % (50-85); Total Cells Counted 100
[2020-02-14] MEDS ORDERED: ceFAZolin 1,000 MG in SYRINGE 1 EACH IV ONE (06:30)
[2020-02-14 06:31] LABS: Anisocytosis 1+; Ovalocytes Slight
[2020-02-14 06:32] LABS: Platelet Estimate Decreased
[2020-02-14] MEDS ORDERED: BUPIVACAINE MPF 0.25% 30 ML VIAL ONE (06:53)
[2020-02-14] MEDS ORDERED: LIDOCAINE 1%/EPI INJ 20 ML VIAL ONE (06:53)
[2020-02-14] MEDS ORDERED: HEPARIN 5,000 UNIT/1 ML VIAL ONE (06:53)
[2020-02-14] MEDS ORDERED: fentaNYL 100 MCG/2 ML VIAL ONE (08:30)
[2020-02-14] MEDS: PANTOPRAZOLE 40 MG TABLET PO SCH (08:30)
[2020-02-14] MEDS ORDERED: propofoL 200 MG/20 ML VIAL IV ONE (08:30)
[2020-02-14] MEDS: CYANOCOBALAMIN 500 MCG TABLET PO SCH (08:30)
[2020-02-14 15:00] LABS: INR 1.1; PT Patient Result 11.3 SECS (9.8-11.9)
[2020-02-14 17:02] LABS: Basophils % 0.1 % (0.0-0.8); Eosinophils # 0.1 10*3/uL (0.0-0.87); Eosinophils % 1.1 % (0.00-10.9); Hematocrit 29.5 VOL% (42.0-52.0); Hemoglobin 9.2 GM/DL (14.0-18.0); Immature Granulocytes % 0.6 %; Immature Granulocytes Absolute 0.05 #; Lymphocytes # 0.7 10*3/uL (1.4-4.0); Mean Corpuscular HGB Conc 31.2 GM/DL (32-36); Mean Corpuscular Volume 91.3 FL (87-102); Mean Platelet Volume 10.9 FL (9.6-12.0); Monocytes % 17.3 % (1.7-12.7); Neutrophils % 71.9 % (38.7-73.9); Platelet Count 57 T/CUMM (130-400); Red Blood Count 3.23 MC/CUMM (3.8-5.5); Red Cell Distribution Width 20.9 % (9.3-17.3); White Blood Count 8.1 T/CUMM (4-12)
[2020-02-14 17:43] LABS: Eosinophils 3 % (0-10); Lymphocytes 4 % (20-55); Segmented Neutrophils 80 % (50-85); Total Cells Counted 100
[2020-02-14 17:45] LABS: Hypochromasia 2+; Macrocytosis Slight
[2020-02-14 17:46] LABS: Platelet Estimate Adequate; Poikilocytosis 1+
[2020-02-14 18:02] LABS: Calcium 7.4 MG/DL (8.5-10.1)
[2020-02-15 03:25] LABS: Basophils % 0.1 % (0.0-0.8); Eosinophils # 0.1 10*3/uL (0.0-0.87); Eosinophils % 1.3 % (0.00-10.9); Hematocrit 23.6 VOL% (42.0-52.0); Hemoglobin 7.5 GM/DL (14.0-18.0); Immature Granulocytes % 0.6 %; Immature Granulocytes Absolute 0.04 #; Lymphocytes # 0.7 10*3/uL (1.4-4.0); Lymphocytes % 9.3 % (21.2-54.2); Mean Corpuscular HGB Conc 31.8 GM/DL (32-36); Mean Corpuscular Volume 89.4 FL (87-102); Mean Platelet Volume 12.1 FL (9.6-12.0); Monocytes % 17.5 % (1.7-12.7); Neutrophils % 71.2 % (38.7-73.9); Platelet Count 50 T/CUMM (130-400); Red Blood Count 2.64 MC/CUMM (3.8-5.5); Red Cell Distribution Width 20.3 % (9.3-17.3)
[2020-02-15 03:39] LABS: Calcium 7.3 MG/DL (8.5-10.1)
[2020-02-15 04:03] LABS: Lymphocytes 8 % (20-55); Segmented Neutrophils 80 % (50-85); Total Cells Counted 100
[2020-02-15 04:04] LABS: Anisocytosis 2+; Hypochromasia Slight; Microcytosis 1+; Platelet Estimate Decreased
[2020-02-15 04:05] LABS: Polychromasia Slight
[2020-02-15] MEDS ORDERED: MAGNESIUM SULF RIDER 4 GM in PREMIX 1 EACH IV PRN (07:05)
[2020-02-15] MEDS ORDERED: MAGNESIUM SULF RIDER 2 GM in PREMIX 1 EACH IV PRN (07:05)
[2020-02-15] MEDS: PANTOPRAZOLE 40 MG TABLET PO SCH (09:46)
[2020-02-15] MEDS: CYANOCOBALAMIN 500 MCG TABLET PO SCH (09:46)
[2020-02-15 11:49] LABS: Anti-Nuclear Antibody Pattern SPECKLED; Double Stranded DNA Antibodies < 25.0 IU/ML
[2020-02-15] MEDS: POLYETHYLENE GLYCOL POWDER 17 GM PACK PO SCH (18:20)
[2020-02-15] MEDS ORDERED: EPOETIN ALFA-EPBX 2,000 UNIT/ML VIAL IV PRN (20:07)
[2020-02-15] MEDS: DOCUSATE SODIUM 100 MG CAPSULE PO SCH (20:41)
[2020-02-16 06:09] LABS: Eosinophils # 0.1 10*3/uL (0.0-0.87); Eosinophils % 2.2 % (0.00-10.9); Hematocrit 23.4 VOL% (42.0-52.0); Hemoglobin 7.5 GM/DL (14.0-18.0); Immature Granulocytes % 0.2 %; Immature Granulocytes Absolute 0.01 #; Lymphocytes # 0.7 10*3/uL (1.4-4.0); Lymphocytes % 12.8 % (21.2-54.2); Mean Corpuscular HGB Conc 32.1 GM/DL (32-36); Mean Platelet Volume 12.9 FL (9.6-12.0); Monocytes % 19.5 % (1.7-12.7); Neutrophils % 65.3 % (38.7-73.9); Platelet Count 46 T/CUMM (130-400); Red Blood Count 2.66 MC/CUMM (3.8-5.5); Red Cell Distribution Width 20.2 % (9.3-17.3); White Blood Count 5.5 T/CUMM (4-12)
[2020-02-16 06:23] LABS: Calcium 7.3 MG/DL (8.5-10.1); Osmolality,Calculated 284.1 MOS/KG (273-304)
[2020-02-16 07:29] LABS: Eosinophils 1 % (0-10); Nucleated Red Blood Cells 1 (0-5); Total Cells Counted 100
[2020-02-16 07:30] LABS: Anisocytosis 2+; Hypochromasia 2+; Lymphocytes 13 % (20-55); Macrocytosis 2+; Platelet Estimate Decreased; Segmented Neutrophils 67 % (50-85)
[2020-02-16 07:40] LABS: Apearance,Urine CLEAR (Clear); Bilirubin,Urine Negative (Negative); Blood, Urine Small mg/dL (Negative); Glucose,Urine (UA) 150 mg/dL (Negative); Ketones,Urine Negative (Negative); Mucus,Urine Occasional /LPF (Occasional); Nitrite,Urine Negative (Negative); Protein,Urine 100 MG/DL; RBC,Urine 3 /HPF (0-4); Urine Color Straw (Yellow); Urine Specific Gravity 1.012 (1.001-1.035); Urine Urobilinogen < 2.0 EU/DL (0.2-1.0); WBC,Urine <1 /HPF (0-6)
[2020-02-16] MEDS: DOCUSATE SODIUM 100 MG CAPSULE PO SCH ×2 (08:16→20:37)
[2020-02-16] MEDS: POLYETHYLENE GLYCOL POWDER 17 GM PACK PO SCH (08:16)
[2020-02-16] MEDS: PANTOPRAZOLE 40 MG TABLET PO SCH (08:16)
[2020-02-16] MEDS: CYANOCOBALAMIN 500 MCG TABLET PO SCH (08:16)
[2020-02-16] MEDS ORDERED: SODIUM CHLORIDE 0.9% 1,000 ML IV PRN ×2 (08:35→13:06)
[2020-02-16] MEDS ORDERED: HEPARIN 10,000 UNIT/10 ML VIAL IV SCH (11:15)
[2020-02-16 17:12] LABS: Basophils % 0.1 % (0.0-0.8); Eosinophils # 0.1 10*3/uL (0.0-0.87); Eosinophils % 1.4 % (0.00-10.9); Hematocrit 28.3 VOL% (42.0-52.0); Hemoglobin 9.1 GM/DL (14.0-18.0); Immature Granulocytes % 0.4 %; Immature Granulocytes Absolute 0.03 #; Lymphocytes # 0.6 10*3/uL (1.4-4.0); Lymphocytes % 9.2 % (21.2-54.2); Mean Corpuscular HGB Conc 32.2 GM/DL (32-36); Mean Corpuscular Volume 90.1 FL (87-102); Mean Platelet Volume 10.5 FL (9.6-12.0); Monocytes % 18.2 % (1.7-12.7); Neutrophils % 70.7 % (38.7-73.9); Platelet Count 71 T/CUMM (130-400); Red Blood Count 3.14 MC/CUMM (3.8-5.5); Red Cell Distribution Width 19.1 % (9.3-17.3)
[2020-02-16 19:25] LABS: Band Neutrophils 1 % (0-10); Lymphocytes 13 % (20-55); Segmented Neutrophils 74 % (50-85); Total Cells Counted 100
[2020-02-16 19:26] LABS: Hypochromasia Slight; Microcytosis 1+; Platelet Estimate Decreased; Polychromasia Slight
[2020-02-17 03:59] LABS: Basophils % 0.2 % (0.0-0.8); Eosinophils # 0.1 10*3/uL (0.0-0.87); Eosinophils % 1.9 % (0.00-10.9); Hematocrit 26.9 VOL% (42.0-52.0); Hemoglobin 8.5 GM/DL (14.0-18.0); Immature Granulocytes % 0.4 %; Immature Granulocytes Absolute 0.02 #; Lymphocytes # 0.7 10*3/uL (1.4-4.0); Lymphocytes % 12.7 % (21.2-54.2); Mean Corpuscular HGB Conc 31.6 GM/DL (32-36); Mean Corpuscular Volume 90.6 FL (87-102); Monocytes % 20.5 % (1.7-12.7); Neutrophils % 64.3 % (38.7-73.9); Platelet Count 52 T/CUMM (130-400); Red Blood Count 2.97 MC/CUMM (3.8-5.5); Red Cell Distribution Width 18.9 % (9.3-17.3); White Blood Count 5.4 T/CUMM (4-12)
[2020-02-17 04:16] LABS: Calcium 7.4 MG/DL (8.5-10.1); Osmolality,Calculated 274.1 MOS/KG (273-304)
[2020-02-17 06:24] LABS: Anisocytosis 1+; Hypochromasia Slight; Lymphocytes 6 % (20-55); Microcytosis Slight; Platelet Estimate Decreased; Segmented Neutrophils 84 % (50-85); Total Cells Counted 100
[2020-02-17] MEDS: PANTOPRAZOLE 40 MG TABLET PO SCH (09:20)
[2020-02-17] MEDS: CYANOCOBALAMIN 500 MCG TABLET PO SCH (09:20)
[2020-02-17] MEDS: DOCUSATE SODIUM 100 MG CAPSULE PO SCH (09:20)
[2020-02-17] MEDS: POLYETHYLENE GLYCOL POWDER 17 GM PACK PO SCH (09:20)
[2020-02-17] MEDS ORDERED: LEVOFLOXACIN 500 MG TABLET PO ONE (11:13)
[2020-02-17 11:53] VITALS: BP 163/84
[2020-02-18 13:21] LABS: Anti SS-A Antibodies 37 EU/ML
== END 2020-02-17 13:52 | disposition home or self-care (01) | DRG 813 ==
LOC: N.ED 05:38 → SUATTDRO 08:23 → N.EDINP 08:23 → N.ICU 13:46 → N.4E 02-08 08:34
PROVIDERS: ADMIT Internal Medicine; ATTEND Hospitalist